=== PATIENT | male | born 2000 | race Caucasian/White ===

== ENCOUNTER 2021-12-29 22:13 | Emergency (ER) | payer BC, SELFPAY ==
[2021-12-29] VITALS (7 sets, daily range): BP systolic 128–199; BP diastolic 85–139; PULSE 99–145; RESP 12–31; TEMP 36.1; O2SAT 70–100; BMI 28.0
[2021-12-29] MEDS: Rocuronium Bromide 50 MG/5 ML Vial 100 MG IV (22:15)
[2021-12-29] MEDS: Propofol 200 MG/20 ML Vial 100 MG IV BOLUS (22:25)
--- NOTE | 2021-12-29 22:25 | RAD_ITS ---
STUDY: X-RAY CHEST REASON FOR EXAM: Male, 21 years old. s/p intubation TECHNIQUE: Single AP portable supine view of the chest. 10:26 PM. COMPARISON: None. FINDINGS: ET tube is in place, projected over the trachea with its tip positioned 2.4 cm above the melissa. NG tube extends into the stomach with its tip projected in the region of the gastric antrum or duodenal bulb. Hazy airspace disease noted throughout the right lung, with a few air bronchograms, and this is greatest in the right midupper lung. Less severe/minimal consolidation noted in the left perihilar region and extending into the left suprahilar region. Normal size heart. Normal mediastinum and dean. Upper lobe pulmonary vascular markings are obscured by the bilateral pulmonary infiltrates. No pneumothorax or pleural effusion. Normal visualized thoracic spine. Normal visualized ribs, clavicles, and shoulders. There is no demonstrated abnormality of the visualized soft tissue structures of the upper abdomen. RAD/Chest 1 View (Portable) IMPRESSION: Satisfactory positioning of ET tube and NG tube. No pneumothorax. Asymmetric pulmonary infiltrates, right greater than left, secondary to asymmetric pulmonary edema versus bilateral pneumonia. Electronically Signed: Black Han MD at 22:51 EDT ,
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
[2021-12-29] MEDS: Propofol 10MG/Ml 1,000 MG/100 ML Bottle 5.3 MG CONT INF (22:42)
[2021-12-29] MEDS: fentaNYL 100 MCG/2 ML Ampul 50 MCG IV (22:47)
[2021-12-29] MEDS: Propofol 200 MG/20 ML Vial 50 MG IV BOLUS (22:49)
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
--- NOTE | 2021-12-29 23:25 | EKG12_ITS ---
Test Reason : UNRESPONSIVE Blood Pressure : / mmHG Vent. Rate : 129 BPM Atrial Rate : 129 BPM P-R Int : 142 ms QRS Dur : 096 ms QT Int : 294 ms P-R-T Axes : 053 053 033 degrees QTc Int : 430 ms Sinus tachycardia Nonspecific T wave abnormality Abnormal ECG Confirmed by GILMA MARIN, JAN ([id number]), art editor SEBASTIAN ENNIS ([id number]) on 12/31/2021 1:50:24 PM Referred By: WARREN Confirmed By:UMER DILLARD MD
[2021-12-29] MEDS: Midazolam 5 MG/ML Syringe IV (23:31)
[2021-12-29 23:45] LABS: Color, Urine Yellow (Yellow); Glucose, Dipstick Normal (Normal); Ketone-Dipstick Negative (Negative); Leukocyte Esterase-Dipstick Negative /ul (Negative); Mucous, Urine 0 SEEN /hpf (<or=2+); Nitrite-Dipstick Negative (Negative); Occult Blood-Urine 250 /ul (Negative); Protein-Dipstick 100 mg/dl (Negative); Urine Bilirubin Dipstick Negative (Negative); Urine Clarity Clear (Clear); Urine Urobilinogen Normal (Normal)
[2021-12-29 23:48] LABS: Absolute Lymphocyte Count 1.16 X10^3/uL (0.83-4.51); Absolute Neutrophil Count 9.4 X10^3/uL (2.0-7.7); Basophil# 0.01 X10^3/uL; Basophil% 0.1 % (0-1); Eosinophil# 0.01 X10^3/uL; Eosinophils% 0.1 % (0-5); Hematocrit 49.4 % (40-54); Hemoglobin 17.5 g/dL (13.0-16.5); Lymphocyte # 1.16 X10^3/ul (0.83-4.51); Mean Corp Hgb Conc 35.4 g/dL (32-36); Mean Corpuscular Volume 84.7 fL (80-94); Mean Platelet Vol. 8.4 fl (6.2-12.0); Monocyte# 0.95 X10^3/uL; Monocyte% 8.2 % (0-10); NRBC Flagged by Analyzer 0 % (0-5); Neutrophil # 9.43 X10^3/uL (2.7-7.7); Neutrophil % 81.3 % (47-70); Platelet Count 205 K/mm3 (150-450); RBC Distribution Width CV 12.2 % (11.6-14.6); RBC Distribution Width SD 36.7 fl (35.1-43.9); Red Blood Count 5.83 M/mm3 (4.6-6.2); White Blood Count 11.6 K/mm3 (4.4-11.0)
[2021-12-29 23:58] LABS: International Normalized Ratio 1.1; Prothrombin Time (Protime)PT. 13.5 SECONDS (11.7-14.9)
[2021-12-30] VITALS (11 sets, daily range): BP systolic 108–165; BP diastolic 71–119; PULSE 95–139; RESP 12–31; TEMP 37.3–37.6; O2SAT 96–100
[2021-12-30 00:01] LABS: Red Blood Cells-Urine 10-25 SEEN /hpf (0-5); White Blood Cells 5-10 SEEN /hpf (0-5)
[2021-12-30 00:02] LABS: Squamous Epithelial Cells - UA 0-5 SEEN /hpf (0-5)
[2021-12-30 00:03] LABS: Bacteria 1+ /hpf (None Seen)
[2021-12-30 00:06] LABS: AST(SGOT) 227 U/L (15-37); Alanine Aminotransfer ALT/SGPT 229 U/L (16-61); Albumin, Serum 3.7 g/dL (3.2-5.0); Alkaline Phosphatase 97 U/L (45-117); Anion Gap 8 (5-15); BUN 20 mg/dL (7-18); BUN/Creat Ratio 16.8 RATIO (10-20); Bilirubin, Direct 0.37 mg/dL (0.00-0.30); Calcium,Total 8.8 mg/dL (8.5-10.1); Chloride 106 mmol/L (98-107); Creatinine, Serum 1.19 mg/dL (0.70-1.30); EST Glomerular Filtration Rate 82 mL/min (>60); Est Glom Filt Rate - Afr Amer 99 mL/min (>60); Estimated Creatinine Clearance 101.39 ml/min; Glucose 147 mg/dL (74-106); Lactic Acid 1.3 mmol/L (0.4-1.9); Potassium 3.4 mmol/L (3.5-5.1); Protein, Total 6.7 g/dL (6.4-8.2); Sodium Level 143 mmol/L (136-145)
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
[2021-12-30 00:18] LABS: CPK Total, Creatine Kinase 1626 U/L (39-308)
[2021-12-30] MEDS: 0.9% Normal Saline 1,000 ML 999 ML IV ×2 (01:20→01:55)
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
--- NOTE | 2021-12-30 02:27 | ED.RN ---
formerly [facility] called for transfer at this time
--- NOTE | 2021-12-30 03:15 | ED.RN ---
I&O d/c at this time
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
--- NOTE | 2021-12-30 23:20 | CT_ITS ---
INDICATION: Electrocution EXAMINATION: CTA CHEST, ABDOMEN AND PELVIS WITH CONTRAST - TECHNIQUE: A CTA of the chest, abdomen, and pelvis is obtained with sagittal and coronal reconstructed MIP views. Three-dimensional surface rendered sequence of the thoracic and abdominal aorta was obtained. A radiation dose optimization technique was used for this scan. 100 mL of Isovue-370. Oral contrast: None. COMPARISON: Cervical spine CT of this date. FINDINGS: CT CHEST: THORACIC AORTA: Normal in course and caliber. No acute aortic injury. No atheromatous disease, no aneurysmal changes or dissection. ABDOMINAL AORTA: No aneurysm or dissection. No significant atheromatous disease. The iliac arteries are unremarkable. LUNGS: Extensive asymmetric consolidation with air bronchograms noted the right lung apex, with mild patchy airspace disease in the left lung apex. Dense consolidation with air bronchograms noted within the dependent portion of both mid-lower lungs, slightly greater on the right. Mild groundglass opacities and patchy airspace disease noted anteriorly within both mid lungs. No pneumatocele is noted. No pleural effusion. Anterior to the right hepatic lobe is a thin crescent of lucency, extending more inferiorly than is typically seen with normal lung, and this is consistent with a deep sulcus of a minimal pneumothorax, with this tiny pneumothorax confirmed on the coronal images of series 607. MEDIASTINUM: No mediastinal or hilar adenopathy. No mediastinal hematoma. HEART: Heart is normal size. No pericardial effusion. OTHER: ET tube is in place within the trachea with its tip just above the level of the melissa. NG tube also noted. 1 CT ABDOMEN AND PELVIS: LIVER: Mild nonspecific periportal lucency, as can be seen with rapid hydration. No hepatic laceration or intrahepatic mass. No masses identified. GALLBLADDER: The CBD is normal. Normal gallbladder. SPLEEN: Normal. No splenic laceration. PANCREAS: No masses or inflammation. ADRENAL GLANDS: Normal. KIDNEYS AND URETERS: The kidneys both enhance appropriately. There are normal size and shape. No hydronephrosis or nephrolithiasis. Tiny simple cyst of the upper pole of the right kidney, which requires no follow-up. STOMACH: NG tube in place extending into the stomach. SMALL BOWEL: No abnormal distention of the small bowel. No hyperenhancement of the bowel wall or mesenteric edema. No extraluminal air. MESENTERY: No mesenteric inflammation. No ascites. COLON: Normal. APPENDIX: Absent. IVC: Normal. RETROPERITONEUM: No retroperitoneal lymphadenopathy. No retroperitoneal hematoma. PELVIC STRUCTURES: Urinary bladder is collapsed about a Montano catheter. SOFT TISSUES ABDOMEN: The anterior abdominal wall is normal. SOFT TISSUE CHEST: The extrathoracic soft tissues are normal. BONES: No thoracic wedge compression fracture. Slight deformity of the lateral right seventh and eighth ribs, probably due to the motion artifact in this area with nondisplaced rib fracture felt less likely. Slight asymmetric widening of the right sternoclavicular joint as compared to the left. There is no posterior displacement of the clavicular head in relation to the manubrium. No acute sternal fracture. CT/CTA Chst, Abd, Pel W and/or WO IMPRESSION: Negative for PE. No acute aortic injury. Satisfactory positioning of ET tube and NG tube. Extensive consolidation within both lungs, primarily within the dependent portion of the lungs, secondary to atelectasis and possible contusion or aspiration. Minimal right pneumothorax, a less than 5% pneumothorax. No associated mediastinal shift. No acute fracture identified when allowing for motion artifact. No acute intra-abdominal injury identified. No hemothorax or hemoperitoneum. Findings discussed with the attending physician. N.B. : The above Results were Read Back by Black Han MD to Dr. Angelina MD, and understanding confirmed on 12/30/2021 01:38:25 (ET). Electronically Signed: Black Han MD at 1:49 EDT ,
== END 2021-12-30 04:14 | disposition short-term general hospital (02) ==
PROVIDERS: Emergency Provider Emergency Medicine; Visit Provider Emergency Medicine
DX: J69.0 Pneumonitis due to inhalation of food and vomit (principal); I49.01 Ventricular fibrillation; T75.4XXA Electrocution, initial encounter; M62.82 Rhabdomyolysis; J93.9 Pneumothorax, unspecified
CPT/HCPCS: 31500; 70450; 71045; 71275; 72125; 74174; 80048; 80076; 81001; 82550; 83605; 85025; 85610; 85730; 87811; 93005; 94002; 94003; 96365; 96366; 96367; 96368; 96375; 99251; 99285; J7030; A4216; G0463; J0295; J3010